=== PATIENT | female | born 1965 | race Caucasian/White ===

== ENCOUNTER 2017-12-15 21:18 | Emergency (ER) | payer BC ==
--- NOTE | 2017-12-15 21:21 | ER Report ---
History and Physical Time Seen By MD: 21:20 HPI/ROS CHIEF COMPLAINT: Left knee pain HISTORY OF PRESENT ILLNESS: 52-year-old female presents to the ER complaining of increasing left knee pain over the last several hours. She is 8 days postop from arthroscopic knee surgery for meniscal tear and other repairs undertaken by Dr. Malagon. She's been doing well up until tonight. 3-4 hours ago. She began having increasing pain. She notes some minimal swelling. She notes a little bit of warmth to the joint. There is old bruising appearing down the biggs. Patient states that he was grossly swollen Allergies: Coded Allergies: Penicillins (Verified Allergy, Intermediate, 12/15/17) Sulfa (Sulfonamide Antibiotics) (Verified Allergy, Intermediate, 12/15/17) Home Meds Active Scripts Ondansetron (ZOFRAN ODT) 4 Mg Tab.rapdis, 4 MG PO every 6 hours Y for NAUSEA/ VOMITING, #10 TAB TAKE 1 TABLET BY MOUTH EVERY 12 HOURS Prov:DEANNA CORONADO DO 12/15/17 Reported Medications Sumatriptan Succinate (IMITREX) 100 Mg Tablet, 100 MG PO ONCE 12/15/17 Fluticasone/Salmeterol (ADVAIR 100-50 DISKUS) 1 Each Disk.w.dev, 1 EACH IH 12/15/17 Albuterol Sulfate 90 Mcg/Act (PROAIR HFA 90 MCG/ACT) 8.5 Gm Hfa.aer.ad, 1-2 PUFF IH 3-4XD, INHALER 12/15/17 Reviewed Nurses Notes: Yes Old Medical Records Reviewed: Yes Constitutional Vital Sign - Last 24 Hours 12/15/17 12/15/17 12/15/17 12/15/17 21:28 21:29 21:33 21:48 Temp 97.8 Pulse 82 87 Resp 24 B/P (MAP) 171/109 171/109 (129) Pulse Ox 97 96 92 12/15/17 12/15/17 12/15/17 12/15/17 21:59 22:03 22:23 22:30 Pulse 74 71 B/P (MAP) 161/93 (115) 158/80 (106) Pulse Ox 95 94 12/15/17 12/15/17 12/15/17 12/15/17 22:38 23:00 23:24 23:29 Pulse 67 B/P (MAP) 166/78 (107) 150/95 (113) Pulse Ox 94 91 12/15/17 12/15/17 12/16/17 23:44 23:59 00:01 Pulse 74 71 Pulse Ox 93 93 91 Physical Exam General appearance: Moderate distress Respiratory: Chest is non tender, lungs are clear to auscultation. Cardiac: Regular rate and rhythm Extremities: Left knee with effusion. There is intact dressing over the joint. The joint has mild warmth. There is no erythema. There is pain on movement. Distal neurovascular functions intact. There is no calf tenderness on compression. There is no Homans sign. DIFFERENTIAL DIAGNOSIS: After history and physical exam differential diagnosis was considered for knee pain, knee joint infection, effusion, hemarthrosis, Medical Decision Making Data Points Result Diagram: 12/15/17215112/15/172151 Laboratory Hematology Test 12/15/17 21:52 Red Blood Count 5.02 M/uL (4.17-5.56) Mean Corpuscular Volume 91.6 fL (80.0-96.0) Mean Corpuscular Hemoglobin 32.4 pg (26.0-33.0) Mean Corpuscular Hemoglobin Concent 35.4 g/dL (32.0-36.0) Red Cell Distribution Width 14.3 % (11.5-14.5) Mean Platelet Volume 8.7 fL (7.2-11.1) Neutrophils (%) (Auto) 46.7 % (39.4-72.5) Lymphocytes (%) (Auto) 39.3 % (17.6-49.6) Monocytes (%) (Auto) 10.5 % (4.1-12.4) Eosinophils (%) (Auto) 3.3 % (0.4-6.7) Basophils (%) (Auto) 0.2 % (0.3-1.4) Nucleated RBC Relative Count (auto) 0.0 /100WBC Neutrophils # (Auto) 4.7 K/uL (2.0-7.4) Lymphocytes # (Auto) 4.0 K/uL (1.3-3.6) Monocytes # (Auto) 1.1 K/uL (0.3-1.0) Eosinophils # (Auto) 0.3 K/uL (0.0-0.5) Basophils # (Auto) 0.0 K/uL (0.0-0.1) Nucleated RBC Absolute Count (auto) 0.00 K/uL Erythrocyte Sedimentation Rate 4 mm/HOUR (0-30) Sodium Level 140 mmol/L (137-145) Potassium Level 4.1 mmol/L (3.5-5.0) Chloride Level 101 mmol/L (98-107) Carbon Dioxide Level 25 mmol/L (22-31) Blood Urea Nitrogen 18 mg/dl (7-18) Creatinine 0.80 mg/dl (0.52-1.04) Glomerular Filtration Rate Calc > 60.0 Random Glucose 116 mg/dl (75-110) Calcium Level 9.9 mg/dl (8.4-10.2) Total Bilirubin 1.1 mg/dl (0.2-1.3) Aspartate Amino Transf (AST/SGOT) 30 U/L (0-35) Alanine Aminotransferase (ALT/SGPT) 36 U/L (0-56) Alkaline Phosphatase 92 U/L (0-126) C-Reactive Protein < 0.5 mg/dl (<1.0) Total Protein 8.3 g/dl (6.3-8.2) Albumin 4.7 g/dl (3.5-5.0) Chemistry Test 12/15/17 21:52 White Blood Count 10.1 k/uL (4.5-11.0) Red Blood Count 5.02 M/uL (4.17-5.56) Hemoglobin 16.3 g/dL (12.0-16.0) Hematocrit 46.0 % (34.0-47.0) Mean Corpuscular Volume 91.6 fL (80.0-96.0) Mean Corpuscular Hemoglobin 32.4 pg (26.0-33.0) Mean Corpuscular Hemoglobin Concent 35.4 g/dL (32.0-36.0) Red Cell Distribution Width 14.3 % (11.5-14.5) Platelet Count 302 K/uL (150-450) Mean Platelet Volume 8.7 fL (7.2-11.1) Neutrophils (%) (Auto) 46.7 % (39.4-72.5) Lymphocytes (%) (Auto) 39.3 % (17.6-49.6) Monocytes (%) (Auto) 10.5 % (4.1-12.4) Eosinophils (%) (Auto) 3.3 % (0.4-6.7) Basophils (%) (Auto) 0.2 % (0.3-1.4) Nucleated RBC Relative Count (auto) 0.0 /100WBC Neutrophils # (Auto) 4.7 K/uL (2.0-7.4) Lymphocytes # (Auto) 4.0 K/uL (1.3-3.6) Monocytes # (Auto) 1.1 K/uL (0.3-1.0) Eosinophils # (Auto) 0.3 K/uL (0.0-0.5) Basophils # (Auto) 0.0 K/uL (0.0-0.1) Nucleated RBC Absolute Count (auto) 0.00 K/uL Erythrocyte Sedimentation Rate 4 mm/HOUR (0-30) Glomerular Filtration Rate Calc > 60.0 Calcium Level 9.9 mg/dl (8.4-10.2) Total Bilirubin 1.1 mg/dl (0.2-1.3) Aspartate Amino Transf (AST/SGOT) 30 U/L (0-35) Alanine Aminotransferase (ALT/SGPT) 36 U/L (0-56) Alkaline Phosphatase 92 U/L (0-126) C-Reactive Protein < 0.5 mg/dl (<1.0) Total Protein 8.3 g/dl (6.3-8.2) Albumin 4.7 g/dl (3.5-5.0) ED Course/Re-evaluation ED Course Patient was admitted to an examination room. H&P was done. The differential diagnoses was considered. Patient's vital signs show no fever. Diagnostic studies are ordered. Blood cultures are drawn. The utility of an x-ray was discussed with the patient. I do not think it will show anything of significance. Patient was medicated with fentanyl and Zofran IV. She feels improvement of her pain. It was quite significant to 8/10. And aggravated with movement. Patient received a 2nd dose after approximately 2 hours with continued pain control. Patient's diagnostic studies returned a normal sedimentation rate of 4. Her white blood cell count was normal without left shift. Patient was discharged home with a prescription for Zofran. She has Tylenol 3, which causes her to have nausea. Patient advised to contact Dr. Malagon tomorrow for evaluation and further treatment. I suspect the patient has a hemarthrosis a delayed hemorrhage causing her discomfort. Decision to Disposition Date: Dec 15, 2017 Decision to Disposition Time: 23:50 Depart Departure Latest Vital Signs Vital Signs Date Time Temp Pulse Resp B/P (MAP) Pulse Ox O2 Delivery O2 Flow Rate FiO2 12/16/17 00:01 91 12/15/17 23:59 71 12/15/17 23:24 150/95 (113) 12/15/17 21:28 97.8 24 Impression: Primary Impression: Knee joint effusion Additional Impression: Status post arthroscopic surgery of left knee Condition: Improved Disposition: HOME OR SELF-CARE Referrals: KRISTOPHER JAIN MD (PCP) New Scripts Ondansetron (ZOFRAN ODT) 4 Mg Tab.rapdis 4 MG PO every 6 hours Y for NAUSEA/VOMITING, #10 TAB TAKE 1 TABLET BY MOUTH EVERY 12 HOURS Prov: DEANNA CORONADO DO 12/15/17 Patient Instructions: Knee Pain (ED) Additional Instructions: Follow-up with Dr. Malagon tomorrow Problem Qualifiers Primary Impression: Knee joint effusion Laterality: left Qualified Codes: M25.462 - Effusion, left knee DEANNA CORONADO DO Dec 15, 2017 21:21
[2017-12-15] MEDS ORDERED: ONDANSETRON 4 MG/2 ML VIAL IVP ONE (21:35)
[2017-12-15] MEDS ORDERED: fentaNYL CITR 100 MCG/2 ML AMP IVP ONE ×2 (21:35→23:10)
[2017-12-15 22:08] LABS: PLATELET COUNT, AUTOMATED 302 K/uL (150-450)
[2017-12-15] MEDS ORDERED: FLUT1DIS27 IH (22:08)
[2017-12-15] MEDS ORDERED: SUMA100T32 PO (22:08)
[2017-12-15] MEDS ORDERED: ALBU8.5H IH (22:08)
[2017-12-15 23:24] VITALS: BP 150/95
[2017-12-15] MEDS ORDERED: ONDA4TAB PO (23:58)
[2017-12-16] MEDS ORDERED: ONDANSETRON 4 MG ODT TH SL ONE
== END 2017-12-16 00:10 | disposition home or self-care (01) ==
LOC: ER 21:49
DX: M25.462 Effusion, left knee (principal); Z98.890 Other specified postprocedural states
CPT/HCPCS: 36415; 85025; 85651; 86140; 87040; 96374; 96375; 96376; 99284; J2405; J3010; S0119; 82040; 82247; 82310; 82374; 82435; 82565; 82947; 84075; 84132; 84155; 84295; 84450; 84460; 84520

== ENCOUNTER 2018-09-22 00:30 | Day surgery (SDC) | payer BC ==
[~2018-09-22] VITALS: Ht 162.6 cm; Wt 55.8 kg
[~2018-09-22 00:30] MED LIST: ALBU8.5H IH; FLUT1DIS27 IH; ONDA4TAB PO; SUMA100T32 PO
[2018-09-22] MEDS ORDERED: LIDOCAINE MPF 1% 5 ML VIAL ONE (08:42)
[2018-09-22] MEDS ORDERED: PROPOFOL EMUL(*) 10MG/ML 20 ML 40 ML ONE (08:42)
[2018-09-22] MEDS ORDERED: LIDOCAINE/SOD BICARB 8.4% SYR ID ONE (09:40)
[2018-09-22] MEDS ORDERED: NORMOSOL R SOLN(*) 1000 ML BAG 1,000 ML IV PRN (09:40)
[2018-09-22 10:30] VITALS: BP 140/79
[2018-09-22] MEDS ORDERED: ONDANSETRON 4 MG/2 ML VIAL ONE (10:38)
[2018-09-22 10:50] VITALS: BP 112/57
[2018-09-22 11:15] VITALS: BP 127/58
[2018-09-22 11:41] VITALS: BP 107/78
[2018-09-22 11:43] VITALS: BP 126/67
== END 2018-09-22 12:10 | disposition home or self-care (01) ==
LOC: OR 00:30
PROVIDERS: ATTEND Internal Medicine Gastroenterology
DX: Z12.11 Encounter for screening for malignant neoplasm of colon (principal); K62.1 Rectal polyp; K64.8 Other hemorrhoids; K57.30 Diverticulosis of large intestine without perforation or abscess without bleeding
CPT/HCPCS: 00811; 45380; 88305; J2001; J2405; J2704